=== PATIENT | female | born 1950 | race Caucasian/White ===

== ENCOUNTER → 2016-12-14 | Outpatient (CLI) | payer BC ==
[~2016-12-14] MED LIST: ASPIRIN 81M81 MG/TA2 PO; ASPIRIN E.C. 8181 MG PO; BETAPACE 120MG120 MG PO; CALCIUM CITRAT200 MG PO; CARDIZEM HC90 MG/CAP PO; COMBIGAN 0.2%-0.5 ML OU; COUMADIN 5MG5 MG/TAB PO; CUTIVATE 0.005% TP; DOXYCYCLINE 10100 MG PO; FERROUS SULFATE65 MG PO; FOLIC ACID 11 MG/TA1 PO; GOOD SENSE ANTI-IT1% TP; LANOXIN 0.25M0.25 MG PO; MAALOX ANTACID1 TAB PO; MAXZIDE-25MG TA1 TAB PO; MILK OF MA400 MG/52 PO; MOTRIN 200200 MG/TAB PO; MULTIPLE VITAMI1 CAP; NORCO 325 MG-51 TAB PO; NORCO 325 MG-7.1 TAB PO; PREMPRO 0.625/21 TAB PO; ROXICODONE 55 MG/TAB PO; SENNA-LAX8.6 MG PO; SENOKOT8.6 MG PO; SOTALOL; TOPROL XL 25MG25 MG PO; TYLENOL 500MG500 MG PO; VITAMIN C500 MG PO; XARELTO10 MG PO; XARELTO20 MG PO
== END ==
LOC: MC.RAD 08:20
DX: Z12.31 Encounter for screening mammogram for malignant neoplasm of breast (principal)

== ENCOUNTER → 2017-09-08 | Outpatient (CLI) | payer MEDICARE, OTHER ==
[2017-09-08 16:48] LABS: HEMOGLOBIN 13.7 g/dl (12.5-16.0); MEAN CELL VOLUME 98 fl (80.0-100.0); MEAN CORPUSCULAR HEMOGLOBIN 32 pg (27.0-31.0); MEAN CORPUSCULAR HGB CONC 33 g/dl (33.0-37.0); MEAN PLATELET VOLUME 10.2 fl (7.4-10.4); PLATELET COUNT 209 K/mm3 (130-400); RED BLOOD COUNT 4.27 M/mm3 (4.10-5.30); REDCELL DISTRIBUTION WIDTH-CV 13.7 % (11.5-14.5)
[2017-09-08 17:12] LABS: ERYTHROCYTE SEDIMENTATION RATE 4 mm/hr (0-30)
== END ==
LOC: COL.LAB 16:18
PROVIDERS: Nurse Practitioner
DX: M25.461 Effusion, right knee (principal); M25.561 Pain in right knee

== ENCOUNTER → 2018-01-11 | Outpatient (CLI) | payer MEDICARE, OTHER | LOC: MC.RAD 10:20 | DX: Z12.31 Encounter for screening mammogram for malignant neoplasm of breast (principal) ==

== ENCOUNTER → 2019-01-18 | Outpatient (CLI) | payer MEDICARE, OTHER | LOC: MC.RAD 08:42 | DX: Z12.31 Encounter for screening mammogram for malignant neoplasm of breast (principal) ==

== ENCOUNTER → 2019-01-20 | Outpatient (CLI) | payer MEDICARE, OTHER | LOC: COL.RAD 13:02 | DX: G43.009 Migraine without aura, not intractable, without status migrainosus (principal) ==

== ENCOUNTER 2020-01-10 13:50 | Emergency (ER) | payer MEDICARE, OTHER ==
[~2020-01-10] VITALS: Ht 165.1 cm; Wt 95.0 kg
[2020-01-10 13:57] VITALS: TEMP 98.8
[2020-01-10 14:25] LABS: BASO % 0.2 % (0.0-2.0); EOS % 0.2 % (0-4.0); GRAN # 3.3 (1.4-6.5); GRAN % 73.8 % (42.2-75.2); HEMATOCRIT 45.1 % (37.0-47.0); HEMOGLOBIN 14.7 g/dl (12.5-16.0); LYMPH # 0.8 (1.2-3.4); LYMPH % 16.8 % (20.0-51.0); MEAN CELL VOLUME 96 fl (80.0-100.0); MEAN CORPUSCULAR HEMOGLOBIN 31 pg (27.0-31.0); MEAN CORPUSCULAR HGB CONC 33 g/dl (33.0-37.0); MEAN PLATELET VOLUME 10.6 fl (7.4-10.4); MONO # 0.4 (0.1-0.6); MONO % 8.6 % (1.7-9.3); PLATELET COUNT 132 K/mm3 (130-400); RED BLOOD COUNT 4.71 M/mm3 (4.10-5.30); REDCELL DISTRIBUTION WIDTH-CV 13.1 % (11.5-14.5)
[2020-01-10 14:45] LABS: ALBUMIN 3.5 gm/dL (3.5-5.0); BILIRUBIN,TOTAL 0.4 mg/dL (0.0-1.0); C-REACTIVE PROTEIN 2.3 mg/dL (0.0-0.9); CALCIUM 8.5 mg/dL (8.4-10.2); CREATININE, serum 0.59 (0.52-1.25); POTASSIUM 3.6 mmol/L (3.4-5.0); TOTAL PROTEIN 6.4 gm/dL (6.4-8.2)
[2020-01-10] MEDS ORDERED: ZITHROMAX Z PA250 MG PO (15:53)
[2020-01-10 15:54] VITALS: BP 125/92; PULSE 99
== END 2020-01-10 16:15 | disposition home or self-care (01) ==
LOC: COL.ER 13:50
PROVIDERS: Nurse Practitioner
DX: J91.8 Pleural effusion in other conditions classified elsewhere (principal); J98.11 Atelectasis; R53.83 Other fatigue
CPT/HCPCS: J7030

== ENCOUNTER → 2020-01-23 | Outpatient (CLI) | payer MEDICARE, OTHER ==
[~2020-01-23] MED LIST changes: +ZITHROMAX Z PA250 MG PO
== END ==
LOC: MC.RAD 08:55
DX: Z12.31 Encounter for screening mammogram for malignant neoplasm of breast (principal)

== ENCOUNTER 2020-06-20 08:00 | Outpatient (RCR) | payer MEDICARE, OTHER | END 2020-06-25 09:28 | LOC: WSPT | DX: R26.89 Other abnormalities of gait and mobility (principal); Z86.19 Personal history of other infectious and parasitic diseases ==

== ENCOUNTER 2020-07-02 08:30 | Outpatient (RCR) | payer MEDICARE, OTHER | END 2020-09-23 | disposition still patient (30) | LOC: WSPT | DX: R26.89 Other abnormalities of gait and mobility (principal) ==

== ENCOUNTER → 2021-01-24 | Outpatient (CLI) | payer MEDICARE, OTHER | LOC: MC.RAD 09:30 | DX: Z12.31 Encounter for screening mammogram for malignant neoplasm of breast (principal) ==

== ENCOUNTER → 2021-12-04 | Outpatient (CLI) | payer MEDICARE, OTHER | LOC: ZCOL.LAB 16:02 | DX: Z20.822 Contact with and (suspected) exposure to COVID-19 (principal) ==

== ENCOUNTER → 2022-01-27 | Outpatient (CLI) | payer MEDICARE ==
[~2022-01-27] MED LIST changes: +LIPITOR 10MG10 MG PO; +MASON NATURAL2000 IU PO
== END ==
LOC: MC.RAD 08:25
DX: Z12.31 Encounter for screening mammogram for malignant neoplasm of breast (principal)

== ENCOUNTER 2022-01-30 07:52 | Day surgery (SDC) | payer MEDICARE, OTHER ==
[~2022-01-30] VITALS: Ht 165.1 cm; Wt 94.2 kg
[~2022-01-30 07:52] MED LIST changes: -LIPITOR 10MG10 MG PO; -MASON NATURAL2000 IU PO
[2022-01-30] MEDS ORDERED: ASPIRIN 81M81 MG/TA2 PO (09:29)
[2022-01-30] MEDS ORDERED: LIPITOR 10MG10 MG PO (09:29)
[2022-01-30] MEDS ORDERED: MASON NATURAL2000 IU PO (09:30)
[2022-01-30 10:40] VITALS: BP 138/73; PULSE 73; TEMP 97.8
[2022-01-30 10:55] VITALS: BP 120/78; PULSE 69
[2022-01-30 11:10] VITALS: BP 139/80; PULSE 70
[2022-01-30 16:26] VITALS: BP 137/79; PULSE 77; TEMP 97.4
== END 2022-01-30 11:18 | disposition home or self-care (01) ==
LOC: SDCO 07:52
DX: Z12.11 Encounter for screening for malignant neoplasm of colon (principal); K57.30 Diverticulosis of large intestine without perforation or abscess without bleeding
CPT/HCPCS: J2704; J7030

== ENCOUNTER → 2024-02-04 | Outpatient (CLI) | payer MEDICARE, OTHER ==
[~2024-02-04] MED LIST changes: +LIPITOR 10MG10 MG PO; +MASON NATURAL2000 IU PO
== END ==
LOC: MC.RAD 08:10
DX: Z12.31 Encounter for screening mammogram for malignant neoplasm of breast (principal)